=== PATIENT | female | born 1990 | race Caucasian/White ===

== ENCOUNTER 2024-05-09 14:20 | Outpatient (CLI) | payer BC, SELFPAY | END 2024-05-09 14:21 | disposition home or self-care (01) | LOC: NFLDREF 05-16 01:12 | PROVIDERS: PCP Family Medicine; Referring Provider Family Medicine; Visit Provider Obstetrics & Gynecology | DX: R35.0 Frequency of micturition (principal); R10.2 Pelvic and perineal pain; Z72.51 High risk heterosexual behavior; Z11.3 Encounter for screening for infections with a predominantly sexual mode of transmission | CPT/HCPCS: 87086; 87491; 87591 ==